=== PATIENT | male | born 1975 | race Caucasian/White ===

== ENCOUNTER 2019-10-11 08:56 | Day surgery (SDC) | payer BC ==
[~2019-10-11 08:56] MED LIST: ACETAMINOPHEN 1,000 MG/100 ML BTL IVPB ONE; CEFAZOLIN 1 Gram 1 GM/50 ML BAG IVPB ONE; CEFAZOLIN 2 Gram 2 GM/50 ML BAG IVPB ONE; CELECOXIB 100 MG CAPSULE PO ONE; FAMOTIDINE 20MG TABLET PO ONE; MECLIZINE 25 MG TABLET PO ONE; METOCLOPRAMIDE 10 MG TABLET PO ONE; VANCOMYCIN 1GM/200ML PREMIX 1 GM/200 ML PIGGYBACK IVPB ONE
[2019-10-11] MEDS ORDERED: MIDAZOLAM HCL 2MG/2ML VIAL IV ONE (08:57)
[2019-10-11] MEDS ORDERED: DEXAMETHASONE 4 MG/ML 1ML VIAL IVP ONE (08:57)
[2019-10-11] MEDS ORDERED: ROPIVACAINE HCL (NAROPIN) /PF 5MG/ML 20ML VIAL IV ONE (08:57)
[2019-10-11] MEDS ORDERED: EPINEPHRINE 1 MG/ML AMPUL SQ ONE (08:57)
[2019-10-11] MEDS ORDERED: PROPOFOL 10 MG/ML VIAL IV ONE (08:57)
[2019-10-11] MEDS ORDERED: LIDOCAINE 2% MDV (20MG/ML) 20ML VIAL IV ONE (08:57)
[2019-10-11] MEDS ORDERED: FENTANYL PF 100MCG/2ML VIAL IV ONE (08:57)
[2019-10-11] MEDS ORDERED: RINGERS SOLUTION,LACTATED 1,000 ML IV ONE ×2 (09:50→11:56)
[2019-10-11 10:22] LABS: ABO GROUP A; RH TYPE POSITIVE
[2019-10-11 10:23] LABS: ANTIBODY SCREEN NEGATIVE (NEGATIVE)
[2019-10-11] MEDS ORDERED: TRANEXAMIC ACID 1,000 MG/10 ML ML IU ONE (11:41)
[2019-10-11] MEDS ORDERED: BUPIVACAINE 0.5% W/EPI MPF 30 ML VIAL SQ ONE (11:41)
[2019-10-11] MEDS ORDERED: TRANEXAMIC ACID 1,000 MG/10 ML ML IV ONE (11:41)
[2019-10-11] MEDS ORDERED: ZOLPIDEM TARTRATE 5 MG TABLET PO PRN (12:52)
[2019-10-11] MEDS ORDERED: HYDROMORPHONE HCL 2 MG/ML VIAL IM PRN (12:52)
[2019-10-11] MEDS ORDERED: DIPHENHYDRAMINE HCL 25 MG CAPSULE PO PRN (12:52)
[2019-10-11] MEDS ORDERED: BISACODYL 10 MG SUPP RC PRN (12:52)
[2019-10-11] MEDS ORDERED: KETOROLAC 30 MG/ML VIAL IVP PRN (12:52)
[2019-10-11] MEDS ORDERED: AL HYDROX/MAG HYDROX 30ML UD PO PRN (12:52)
[2019-10-11] MEDS ORDERED: ACETAMINOPHEN 325 MG TAB PO PRN (12:52)
[2019-10-11] MEDS ORDERED: TRAMADOL HCL 50 MG TABLET PO PRN (12:52)
[2019-10-11] MEDS ORDERED: ACETAMINOPHEN W/ CODEINE 300MG/60MG TABLET PO PRN ×2 (12:52)
[2019-10-11] MEDS ORDERED: NALOXONE 0.4 MG/1 ML VIAL IVP PRN (12:52)
[2019-10-11] MEDS ORDERED: ONDANSETRON HCL IV 4 MG/2 ML VIAL IVP PRN (12:52)
[2019-10-11] MEDS ORDERED: MAGNESIUM HYDROXIDE 30 ML UDC PO PRN (12:52)
[2019-10-11] MEDS: POTASSIUM CHLORIDE/D5-0.9%NACL 20 MEQ/1,000 ML BAG IV SCH ×2 (13:40→16:37)
[2019-10-11] MEDS: HYDROCODONE/APAP 10/325 TABLET PO PRN ×2 (16:36→21:46)
--- NOTE | 2019-10-11 16:38 | Rehab Evaluation ---
Patient Information - Patient Information Diagnosis: L Knee DJD Ordered Treatment: PT Evaluate and Treat Status: Initial Evaluation Surgery: Yes (L TKA) Date of Surgery: 10/11/19 Past Medical/Surgical Hx: PAST MEDICAL/SURGICAL HISTORY Past Surgical History RIGHT KNEE SCOPE TONSILECTOMY PMH - Respiratory Hx Respiratory Disorders Yes Hx Asthma Yes: IN THE PAST Hx Bronchitis Yes: 2013 Hx Pneumonia Yes: IN THE PAST Hx Sleep Apnea Yes Hx of CPAP Yes PMH - Cardiovascular Hx Cardiovascular Disorders Yes Hx Hypertension Yes: CONTROLLED WITH MEDS Hx Irregular Heartbeat Yes: 2008 WORE A HALTOR MONITOR NEG NO RECENT PROB Exercise Tolerance Fair Comment: HYPERLIPIDEMIA PMH - Neuro Hx Neurological Disorders Yes Hx Weakness Yes: KNEES PMH - GI Hx Gastrointestinal Disorders Yes Hx Celiac Disease Yes PMH - Hx Genitourinary Disorders No PMH - Endocrine Hx Endocrine Disorders No PMH - Musculoskeletal Hx Musculoskeletal Disorders Yes Hx Arthritis Yes: KNEES AND HIPS PMH - Psych Hx Psychiatric Problems No PMH - Hematology/Oncology Hx Hematology/Oncology No Disorders Premorbid Status: Detail Social History: Detail (Patient lives with his spouse in a 2-story home. He reports that he will have to use the second floor following discharge. There are 13 stairs to the second floor with a railing on the L when ascending and a railing care home up on the R and then a banister. There are two steps to enter the home with no railing. In the bathroom there is a walk-in shower with no grab bars, a hand-held shower head, and a shower bench. There is an elevated toilet with grab bars. The patient has a front-wheeled walker, and a single point cane available to use. He is scheduled for home PT following discharge.) Precautions: [place], Fall, Other (WBAT on L LE) - Time With Patient Total Time Spent With Patient (Min): 30 Treatment Procedures: Detail (Inital evaluation; low complexity The patient was left in bed with his call light and bedside table within reach. His family was in the room with him and the nursing staff was notified of his position.) Subjective Information - Subjective Information Per Patient (Patient reported that he was starting to have some pain in his L knee.) Objective Data - Pain Pain Present: Yes (L knee) - Mental Status Patient Orientation: Oriented x3 - Visual Perception Appears within normal limits for therapeutic activities - ROM Not within normal limits (L knee AROM is limited as expected s/p L TKA procedure. L hip and ankle, and R LE ROM is within normal limits for functional activities.) - Strength/Tone Not within normal limits (L knee strength is limited as expected s/p L TKA procedure. L hip and ankle, and R LE strength is within normal limits for functional activities.)
[2019-10-11] MEDS: CEFAZOLIN 2 Gram 2 GM/50 ML BAG IVPB SCH (20:08)
[2019-10-11] MEDS: DOCUSATE SODIUM 100 MG CAPSULE PO SCH (21:45)
[2019-10-11] MEDS ORDERED: LISINOPRIL 20 MG TABLET PO SCH (22:00)
[2019-10-11] MEDS ORDERED: ATORVASTATIN 20 MG TABLET PO SCH (22:00)
[2019-10-12] MEDS: CEFAZOLIN 2 Gram 2 GM/50 ML BAG IVPB SCH ×2 (02:35→10:29)
[2019-10-12] MEDS: HYDROCODONE/APAP 10/325 TABLET PO PRN ×3 (03:06→11:23)
[2019-10-12] MEDS: POTASSIUM CHLORIDE/D5-0.9%NACL 20 MEQ/1,000 ML BAG IV SCH ×3 (03:11→14:18)
[2019-10-12 06:37] LABS: HEMATOCRIT 31.8 % (42.0-52.0); HEMOGLOBIN 9.6 gm/dl (14.0-18.0)
[2019-10-12 06:53] LABS: BLOOD UREA NITROGEN 13 mg/dL (6-20); CREATININE 0.6 mg/dL (0.7-1.2); EST GLOMERULAR FILTRATION RATE > 60 mL/min; GLUCOSE,RANDOM 125 mg/dL (74-109)
--- NOTE | 2019-10-12 07:30 | Operative Note ---
DATE OF SURGERY: 10/11/2019 PREOPERATIVE DIAGNOSIS: End-stage arthrosis of the left knee. POSTOPERATIVE DIAGNOSIS: End-stage arthrosis of the left knee. OPERATION: Cemented left total knee arthroplasty using Sandoval and Nephew components with a size 6 Legion femur, a size 6 stemmed tibia baseplate, an 11 mm lipped highly crosslinked tibial insert, and a 35 mm all-plastic patella. STAFF SURGEON: Byron Morillo MD ANESTHESIA: Spinal. PREPARATION: Chloraprep. INDIVIDUAL CONSIDERATIONS: This man was morbidly obese with a body mass index of about 50. This made exposure much more difficult. PROCEDURE: The patient was taken to the operating room, placed supine on the operating room table. He had a successful induction of a spinal anesthetic. The left lower extremity was prepped and draped in the usual fashion. The limb was elevated and tourniquet was inflated to 250 mmHg. The patient had a midline approach to the knee. Sharp dissection carried down through skin and subcutaneous tissue. Small veins were coagulated with a Bovie. A medial arthrotomy was performed. The patella was everted and the knee was flexed. The patient had exposed bone in the medial and patellofemoral compartments. Medially there was bone loss. Fat pad was resected, ACL was sacrificed, and provisional anterior meniscectomies were performed. The capsule was released from the medial proximal tibia. The initial femoral kitchen steward/stewardess hole was then made freehand. The intramedullary femoral cutting jig was placed. It was cut in 7.0 degrees of valgus and adjusted for rotation and secured with pins for a 10 mm resection. The initial transverse cut was then made. The skin guide was placed for the anterior and posterior kitchen steward/stewardess holes. It was found that a size 6 would be appropriate. The kitchen steward/stewardess holes were drilled in 3 degrees of external rotation for the Legion. The anterior and posterior cuts followed by chamfer cuts were made. Osteophytes removed, and a size 6 trial was placed and found to fit well. The tibia was brought forward, and the remainder of the meniscal remnants removed with a Bovie. The extraarticular tibial cutting jig was placed. It was cut in neutral with a 3-degree AP slope. Care was taken to adjust for rotation and flexion using the extraarticular alignment guide and bony landmarks. It was set for a 9 mm resection keyed off the high lateral side and secured with pins. When cutting the tibia, care was taken to preserve the PCL insertion on the tibia. After removing large medial osteophytes, I was able to fit a size 6 baseplate. It was adjusted for rotation and secured with pins. With an 11 mm trial and femoral trial, there was excellent motion and stability. Ligamentous balance, rotation alignment, and patellofemoral tracking were be normal. No lateral release was required for patellofemoral tracking even at this point. Femoral kitchen steward/stewardess holes were impacted and the tibial keel stamp was impacted, and these trial components were removed. The patient had a very thick patella and roughly 9 mm of bone was removed freehand. I was easily able to fit a 35 patella after trimming osteophytes. The 3 kitchen steward/stewardess holes were drilled for the patella. The tourniquet was let down briefly to get bleeders posteriorly and then placed back up again. The knee was then thoroughly irrigated out with pulsatile Betadine and saline to remove any visual or palpable debris. Bony surfaces were then dried. A size 6 stemmed tibia baseplate was cemented into place followed by impaction of the 11 mm lipped highly crosslinked tibial insert followed by cementing in the size 6 Legion Oxinium femur followed by cementing in the 35 mm patella. The implant surfaces were compressed, excess cement was removed. After the cement had set, there was excellent motion and stability. Ligamentous balance, rotation alignment, and patellofemoral tracking were normal. No lateral release was required. Again thorough irrigation. Tourniquet was let down. Hemostasis was obtained with a Bovie. The skin, subcu, and periosteum were infiltrated with 30 mL of 0.5% Marcaine with epinephrine. The capsule was then closed with a running #2 quill, subcu was closed in layers with running 0 quill, skin was closed with davy. Then 1 g of tranexamic acid was mixed with 30 mL of saline and injected into the knee through a sterile 18-gauge needle, and a sterile bulky compressive SARAH- type dressing was applied. The patient tolerated the procedure well. Needle and sponge counts were correct. Estimated blood loss was minimal, and he was taken back to recovery in good condition. There were no complications. [facility]
[2019-10-12] MEDS: DOCUSATE SODIUM 100 MG CAPSULE PO SCH (09:20)
[2019-10-12] MEDS ORDERED: RIVAROXABAN 10 MG TABLET PO SCH (10:00)
[2019-10-12] MEDS ORDERED: FERROUS SULFATE 325 MG TAB PO SCH (10:00)
--- NOTE | 2019-10-12 10:49 | Physical Therapy Tx Note ---
Physical Therapy Tx Note - Treatment Note Tolerated: Good Total Time Spent With Patient: 30 Physical Therapy Tx Note: Detail (Patient reported that he had some pain in his L knee this morning. He was independent in sit to stand from the recliner to the walker. In the hallway, he ambulated 316 feet with the front-wheeled walker independently using WBAT on the L LE. He completed stair training over 13 stairs using a cane and a hand railing for support and supervision of PT. Patient demonstrated good technique and understanding of technique to negotiate stairs. In bed his HEP was reviewed and patient demonstrated good technique and understanding of all exercises. The patient was independent in all bed mobility and transferring from the bed to the recliner. He was left in the recliner with his call light and bedside table within reach. The nursing staff was notified of his status.) Physical Therapy Problem List: Detail (1. L knee pain 2. Decreased L knee strength 3. Decreased L knee ROM 4. Gait abnormalities 5. Decreased tolerance for stairs) Physical Therapy Goals: 1. Patient will be independent and demonstrate good technique of all exercises to improve L knee strength and ROM. GOAL MET. 2. Patient will be able to ambulate household distances independently with a front- wheeled walker, WBAT on the L LE to get around his home following discharge. GOAL MET. 3. The patient will be able to ascend and descend 13 stairs with good technique and supervision to get to the second floor of his home following discharge. GOAL MET Physical Therapy Plan: Patient has met all of his inpatient goals at this time. He will continue with home therapy following discharge.
--- NOTE | 2019-10-12 12:28 | Rehab Evaluation ---
Patient Information - Patient Information Diagnosis: L Knee DJD Ordered Treatment: OT Evaluate and Treat Status: Initial Evaluation Surgery: Yes (L TKA) Date of Surgery: 10/11/19 Past Medical/Surgical Hx: PAST MEDICAL/SURGICAL HISTORY Past Surgical History RIGHT KNEE SCOPE TONSILECTOMY PMH - Respiratory Hx Respiratory Disorders Yes Hx Asthma Yes: IN THE PAST Hx Bronchitis Yes: 2013 Hx Pneumonia Yes: IN THE PAST Hx Sleep Apnea Yes Hx of CPAP Yes PMH - Cardiovascular Hx Cardiovascular Disorders Yes Hx Hypertension Yes: CONTROLLED WITH MEDS Hx Irregular Heartbeat Yes: 2008 WORE A HALTOR MONITOR NEG NO RECENT PROB Exercise Tolerance Fair Comment: HYPERLIPIDEMIA PMH - Neuro Hx Neurological Disorders Yes Hx Weakness Yes: KNEES PMH - GI Hx Gastrointestinal Disorders Yes Hx Celiac Disease Yes PMH - Hx Genitourinary Disorders No PMH - Endocrine Hx Endocrine Disorders No PMH - Musculoskeletal Hx Musculoskeletal Disorders Yes Hx Arthritis Yes: KNEES AND HIPS PMH - Psych Hx Psychiatric Problems No PMH - Hematology/Oncology Hx Hematology/Oncology No Disorders Premorbid Status: Detail (Prior to Sx, Pt was independent w/ all I/ADLs, driving, and working time analysis clerk as a professor.) Social History: Detail (Patient lives with his spouse in a 2-story home. He reports that he will have to use the second floor following discharge. There are 13 stairs to the second floor with a railing on the L when ascending and a railing long-term up on the R and then a banister. There are two steps to enter the home with no railing. In the bathroom there is a walk-in shower with no grab bars, a hand-held shower head, and a shower chair. He does have suction GB and was educated on how to place them for safety. There is an elevated toilet with grab bars. The patient has a front-wheeled walker, and a single point cane available to use. He is scheduled for home PT following discharge.) Precautions: [place], Fall, Other (WBAT on L LE) - Time With Patient Total Time Spent With Patient (Min): 33 (1 OT eval low complexity) Subjective Information - Subjective Information Per Patient (Pt in recliner upon therapist arrival, agreeable to OT eval. Finished session in recliner w/ call light in reach eating breakfast w/ ice on knee.) Objective Data - Pain Pain Present: Yes Pain Scale Used: Numeric (1 - 10) (3/10 w/ recentl pain meds) - Mental Status Patient Orientation: Oriented x3 - Visual Perception Appears within normal limits for therapeutic activities - ROM Within normal limits (B UEs) - Strength/Tone Within normal limits (B UEs) - Coordination Appears within normal limits for therapeutic activities - Bed Mobility Independent (indep w/ recliner mobility) - Transfers Independent (sit-stand to FWW from recliner w/ good balance and safety awareness.) - Balance Balance Sitting: Good Balance Standing: Good, Fair - Sensation Intact - Gait Detail (Fxl mobility within bedroom w/ FWW and good safety awareness. Educated on safe walker positioning during toileting and sink-side and Pt demos good follow thru.) - ADL's/IADL's Detail (OT educates Pt on adaptive tech for LB dressing and Pt demos good follow thru to don/doff underwear, shorts, and socks. Verbalizes tedhose wearing schedule and adaptive techs for increased success, reports his will assist upon DC.) - Special Tests No Therapy Assessment - Therapy Assessment Detail (Pt tolerates OT eval well and demos good safety and independence w/ ADLs and fxl TFs and will have assist from his upon DC. Appears ready for home DC when medically ready.) Patient Education - Patient Education Teaching Topic: Other (modified techs for LB dressing, safe walker use, home mods) Response: Return Demonstration, Verbalize Understanding Teaching Method: Discussion, Demonstration Teaching Recipient: Patient Barriers To Learning: None Problem List - Problem List Physical Therapy Problem List: Detail (1. L knee pain 2. Decreased L knee strength 3. Decreased L knee ROM 4. Gait abnormalities 5. Decreased tolerance for stairs) Occupational Therapy Problem List: Detail (No further IP OT needs identified.) Goals - Goals Physical Therapy Goals: 1. Patient will be independent and demonstrate good technique of all exercises to improve L knee strength and ROM. GOAL MET. 2. Patient will be able to ambulate household distances independently with a front- wheeled walker, WBAT on the L LE to get around his home following discharge. GOAL MET. 3. The patient will be able to ascend and descend 13 stairs with good technique and supervision to get to the second floor of his home following discharge. GOAL MET Occupational Therapy Goals: No further IP OT needs/goals identified. Prognosis - Prognosis Good Plan - Plan Physical Therapy Plan: Patient has met all of his inpatient goals at this time. He will continue with home therapy following discharge. Occupational Therapy Plan: No further IP OT needs/goals identified. DC skilled OT services. Thank you for this referral.
== END 2019-10-12 14:00 | disposition home health service (06) ==
LOC: SUR 08:56 → MEDSURG 13:25 → SUR 10-12 14:00
PROVIDERS: ATTEND Orthopaedic Surgery
DX: M17.12 Unilateral primary osteoarthritis, left knee (principal); I10 Essential (primary) hypertension; E78.00 Pure hypercholesterolemia, unspecified; J45.909 Unspecified asthma, uncomplicated; E66.9 Obesity, unspecified; Z68.43 Body mass index [BMI] 50.0-59.9, adult
CPT/HCPCS: 76942; 80048; 85014; 85018; 86850; 86900; 86901; C1776; J0171; J1885; J3370; J3480; J7120